=== PATIENT | female | born 1965 | race Caucasian/White ===

== ENCOUNTER 2016-11-07 14:04 | Outpatient (CLI) ==
[2016-05-21 15:35] VITALS: BMI 40.1
[2016-11-07 14:30] LABS: BASOPHILS # (AUTO) 0.1 K/uL (0-0.2); BASOPHILS % (AUTO) 0.9 % (0.0-3.0); EOSINOPHILS # (AUTO) 0.4 K/ul (0.0-0.7); EOSINOPHILS % (AUTO) 4.1 % (0.0-7.0); HEMATOCRIT 40.9 % (37.0-47.0); HEMOGLOBIN 14.8 g/dl (12.0-16.0); IMMATURE GRANULOCYTE % (AUTO) 0.8 % (0.0-5.0); LYMPHOCYTES # (AUTO) 4.3 K/uL (0.60-3.4); LYMPHOCYTES % (AUTO) 40.3 (10.0-50.0); MEAN CORPUSCULAR HGB CONC 36.2 (31.8-35.4); MEAN CORPUSCULAR VOLUME 88.3 fl (81.0-99.0); MONOCYTES # (AUTO) 0.8 K/uL (0.4-2.0); MONOCYTES % (AUTO) 7.5 (0-10); NEUTROPHILS # (AUTO) 4.9 K/ul (2.0-6.9); NEUTROPHILS % (AUTO) 46.4; PLATELET COUNT 289 10^3/uL (140-440); RED BLOOD COUNT 4.63 10^6/ul (4.20-5.40); WHITE BLOOD COUNT 10.56 K/ul (4.6-10.2)
[2016-11-07 16:22] LABS: ALBUMIN 3.9 g/dL (3.4-5.0); ALBUMIN/GLOBULIN RATIO 1.15; ANION GAP 14.5; BILIRUBIN,TOTAL 0.43 mg/dL (0.00-1.20); BUN/CREATININE RATIO 16.09; CALCIUM 9.6 mg/dL (8.2-10.2); CHOL/HDL RATIO 4.3 (4.5-5.5); CREATININE 0.87 mg/dL (0.60-1.30); POTASSIUM 3.5 mmol/L (3.5-5.10); TOTAL PROTEIN 7.3 g/dL (6.4-8.2)
== END 2016-11-07 14:05 | disposition home or self-care (01) ==
LOC: LAB 14:04
PROVIDERS: ATTEND Emergency Medicine
DX: E11.9 Type 2 diabetes mellitus without complications (principal); I10 Essential (primary) hypertension; E78.5 Hyperlipidemia, unspecified; E66.9 Obesity, unspecified; F32.9 Major depressive disorder, single episode, unspecified
CPT/HCPCS: 36415; 80053; 80061; 82306; 82607; 83036; 84443; 85025

== ENCOUNTER 2016-11-16 13:53 | Outpatient (CLI) ==
[2016-05-21 15:35] VITALS: BMI 40.1
--- NOTE | 2016-11-16 14:22 | DI ---
Examination: Three radiographic images of the left foot. Comparison: Right foot radiographs performed 03/09/2016. Reason for study: Left foot injury. FINDINGS: There is subluxation of the first left metatarsal phalangeal joint with sclerotic change suggesting hallus valgus deformity. No acute fracture or dislocation. Degenerative changes are see n in the calcaneus with entheseophyte formation. Impression: 1. Subluxation of the first metatarsal phalangeal joint consistent with hallus valgus deformity. 2. Mild degenerative change.
== END 2016-11-16 13:54 | disposition home or self-care (01) ==
LOC: RAD 13:53
PROVIDERS: ATTEND Emergency Medicine
DX: S99.922A Unspecified injury of left foot, initial encounter (principal)

== ENCOUNTER 2017-04-25 15:49 | Outpatient (CLI) ==
[2016-05-21 15:35] VITALS: BMI 40.1
== END 2017-04-25 15:50 | disposition home or self-care (01) ==
LOC: CAR 15:49
PROVIDERS: ATTEND Internal Medicine
DX: R06.83 Snoring (principal); G47.10 Hypersomnia, unspecified
CPT/HCPCS: 95810

== ENCOUNTER 2017-08-26 16:36 | Emergency (ER) ==
[2017-08-26 16:40] VITALS: BP 130/89; TEMP 98.3; BMI 39.7
[2017-08-26] MEDS ORDERED: MORPHINE 10 MG/ML SYRINGE IM STA (17:03)
[2017-08-26] MEDS ORDERED: LIDOCAINE HCL 1% SDV SUBCUT STA (17:03)
[2017-08-26] MEDS ORDERED: ROCEPHIN IM STA (17:03)
--- NOTE | 2017-08-26 17:05 | ED.PDOC ---
General ED Provider: Dr. KALIE TATE Chief Complaint: Tooth Problem Stated Complaint: Patient is a 52 year old who comes to the ER with right jaw swelling and pain for the last few days. States she has an abscess tooth on the right lower molar. Also complains of chest conjestion and sinus pain. Time Seen by Physician: 16:50 Mode of Arrival: Walk-In Information Source: Patient Exam Limitations: No limitations Primary Care Provider: FAVIAN GASTON Nursing and Triage Documentation Reviewed and Agree: Yes Reviewed sepsis parameters & appropriate labs ordered?: Yes System Inflammatory Response Syndrome: Not Applicable Sepsis Protocol: For patient's 13 years and over: Temp is 96.8 and below OR 101 and greater Pulse >90 BPM Resp >20/minute Acutely Altered Mental Status Are patient's symptoms suggestive of a new infection, such as: -Pneumonia -Skin, Soft Tissue -Endocarditis -UTI -Bone, Joint Infection -Implantable Device -Acute Abdominal Infection -Wound Infection -Meningitis -Blood Stream Catheter Infection -Unknown System Inflammatory Response Syndrome: Not Applicable EENT Complaint Exam - Dental/Oral Complaint/Exam Mechanism of Injury: No known trauma Onset/Duration: 2 days Symptoms Are: Still present Timing: Constant Initial Severity: Moderate Location: RIght lower molar Character: Reports: Aching, Throbbing Aggravating: Reports: Chewing Associated Signs and Symptoms: Reports: Swelling, Foul odor, Foul taste in mouth. Denies: Discharge, Fever Tooth Findings: Present: Gross decay, Gross caries, Abcess, Cellulitis Cervical Lymphadenopathy Present: No Facial Swelling Present: Yes (on the right) Bleeding Present: No Oropharynx Findings: Absent: Clots, Active bleeding Septal Hematoma: No Foreign Body Present: No Dysphagia Present: No Drooling Present: No Asymmetrical Tonsillar Swelling Present: No Uvula Midline: No Jessica-tonsillar Fluctuence: No Trismus Present: No Palatal Petechiae Present: No Scarlatinaform Rash Present: No Lesions: Absent: Lip, Gums, Tongue, Buccal Mucosa, Pharynx Exanthem: Absent: Lip, Gums, Tongue, Buccal Mucosa, Pharynx Vesicles: Absent: Lip, Gums, Tongue, Buccal Mucosa, Pharynx Teeth Picture: 1 - Gross decay with abscess and swelling. Differential Diagnoses: Dental Abcess, Dental Caries, Sinusitis Review of Systems - Review Of Systems Constitutional: Reports: No symptoms Eyes: Reports: No symptoms Ears, Nose, Mouth, Throat: Reports: Mouth pain (and swelling ) Respiratory: Reports: Cough Cardiac: Reports: No symptoms GI: Reports: No symptoms Musculoskeletal: Reports: No symptoms Skin: Reports: No symptoms Neurological: Reports: Anxiety All Other Systems: Reviewed and Negative Past Medical History - Past Medical History Previously Healthy: No Endocrine: Reports: DM 2, Hypothyroid, Dyslipidemia, Other (gout) Cardiovascular: Reports: Hypertension Respiratory: Reports: COPD, Asthma Hematological: Reports: Unknown Gastrointestinal: Reports: GERD Genitourinary: Reports: Kidney stones Neuro/Psych: Reports: Anxiety Musculoskeletal: Reports: Arthritis, Back Pain Cancer: Reports: Unknown Last Menstrual Period: no longer has them - Surgical History General Surgical History: Reports: Tubal ligation, Appendectomy, Cholecystectomy , Orthopedic (lrft knee meniscus repair ) - Family History Family History: Reports: Unknown - Social History Smoking Status: Current every day smoker, Heavy tobacco smoker Hx Substance Use: No Alcohol Screening: None Physical Exam - Physical Exam Appearance: Ill-appearing, Obese Ill-appearing: Moderate Pain Distress: Severe Eyes: KELLY, EOMI, Conjunctiva clear ENT: Ears normal, Nose normal, Oropharynx normal Neck: Supple Respiratory: Airway patent, Breath sounds clear, Breath sounds equal, Respirations nonlabored Cardiovascular: RRR, Pulses normal, No rub, No murmur Musculoskeletal: Normal strength, ROM intact, No edema, No calf tenderness Skin: Warm, Dry, Normal color Neurological: Sensation intact, Motor intact, Alert, Oriented Psychiatric: Anxious Critical Care Note - Critical Care Note Total Time (mins): 0 Course - Course Orders, Labs, Meds: Orders Category Date Time Status UA [URINALYSIS C & S IF INDICATED] Stat LAB 08/26/17 16:54 Uncollected Vital Signs: Temp Pulse Resp BP Pulse Ox 08/26/17 16:36 98.3 F 84 20 130/89 95 Departure - Departure Time of Disposition: 17:54 Disposition: HOME SELF-CARE Discharge Problem: Dental abscess, Dental caries Instructions: Dental Abscess (ED) Condition: Stable Pt referred to PMD for follow-up: Yes Additional Instructions: Follow up with your dentist in 2-5 days Take antibiotics as prescribed. Quit smoking Prescriptions: Amoxicillin/Potassium Clav [Augmentin 500-125 mg Tab] 1 tab PO Q8HR #30 tablet Ibuprofen [Motrin] 600 mg PO Q6H PRN #20 tablet PRN Reason: Analgesia Allergies/Adverse Reactions: Allergies codeine Adverse Reaction (Verified 08/26/17 16:40) sulfamethoxazole [From Bactrim] Adverse Reaction (Verified 08/26/17 16:40) trimethoprim [From Bactrim] Adverse Reaction (Verified 08/26/17 16:40) Home Medications: Ambulatory Orders Albuterol Sulfate [Proair Hfa] 2 puff IH Q4H PRN 05/21/16 Amlodipine Besylate [Norvasc] 5 mg PO DAILY 05/21/16 Atorvastatin Calcium [Lipitor] 40 mg PO DAILY 05/21/16 Budesonide/Formoterol Fumarate [Symbicort 160-4.5 Mcg Inhaler] 1 puff IH BID 10/05 Captopril 50 mg PO BID 05/21/16 Citalopram Hydrobromide [Citalopram HBr] 40 mg PO DAILY 05/21/16 Furosemide [Lasix] 20 mg PO BID 05/21/16 Glyburide 5 mg PO BID 05/21/16 Hydrochlorothiazide 12.5 mg PO DAILY 05/21/16 Levothyroxine Sodium [Synthroid] 25 mcg PO QDAC 05/21/16 Metformin HCl [Glucophage] 1,000 mg PO BID 05/21/16 Potassium Chloride [Micro-K Cap] 10 meq PO BID 05/21/16 Ranitidine HCl 150 mg PO BID 05/21/16 Topiramate [Topamax] 25 mg PO BID 05/21/16 Gabapentin 600 mg PO BEDTIME 06/13/17 Hydrocodone Bit/Acetaminophen [[place] 7.5-325] 1 each PO TID 06/13/17 Amoxicillin/Potassium Clav [Augmentin 500-125 mg Tab] 1 tab PO Q8HR #30 tablet 08/26/17 Ibuprofen [Motrin] 600 mg PO Q6H PRN #20 tablet 08/26/17 Disposition Discussed With: Patient
== END 2017-08-26 17:59 | disposition home or self-care (01) ==
LOC: ED 16:36
DX: K04.7 Periapical abscess without sinus (principal); K02.7 Dental root caries; F17.210 Nicotine dependence, cigarettes, uncomplicated; Z79.899 Other long term (current) drug therapy
CPT/HCPCS: 81001; 87086; 96372; 99283

== ENCOUNTER 2017-11-07 15:49 | Outpatient (CLI) | END 2017-11-07 15:50 | disposition home or self-care (01) | LOC: LAB 15:49 | PROVIDERS: ATTEND Internal Medicine | DX: E11.9 Type 2 diabetes mellitus without complications (principal); E78.5 Hyperlipidemia, unspecified; I10 Essential (primary) hypertension; E66.9 Obesity, unspecified; J44.9 Chronic obstructive pulmonary disease, unspecified; E03.9 Hypothyroidism, unspecified | CPT/HCPCS: 36415; 80053; 80061; 81001; 83036; 84443; 85025; 87086 ==

== ENCOUNTER 2018-04-05 15:48 | Outpatient (CLI) | END 2018-04-05 15:49 | disposition home or self-care (01) | LOC: LAB 15:48 | PROVIDERS: ATTEND Internal Medicine | DX: E11.9 Type 2 diabetes mellitus without complications (principal); E78.5 Hyperlipidemia, unspecified; N39.0 Urinary tract infection, site not specified | CPT/HCPCS: 36415; 80053; 80061; 81001; 83036; 84439; 84443; 85025; 87086 ==

== ENCOUNTER 2018-04-12 15:33 | Outpatient (CLI) | END 2018-04-12 15:34 | disposition home or self-care (01) | LOC: LAB 15:33 | PROVIDERS: ATTEND Internal Medicine | DX: N39.0 Urinary tract infection, site not specified (principal) | CPT/HCPCS: 81001; 87086 ==

== ENCOUNTER 2018-05-16 07:58 | Outpatient (CLI) ==
--- NOTE | 2018-05-16 10:04 | CT ---
EXAM: CT of the abdomen and pelvis with and without contrast (CT urogram) History: Microscopic hematuria, urinary frequency, lower abdominal pain and pelvic pain. Comparison: CT abdomen pelvis 05/21/2016 Technique: Multiplanar CT images through the abdomen and pelvis were obtained with and without the a dministration of IV contrast. MIP images and 3-D reconstructions also provided Findings: Lung bases are clear. No acute osseous abnormalities. Status post cholecystectomy. The l iver is enlarged measuring 21 cm in length. Spleen is enlarged measuring 14 cm in length. The 1 mm left renal calculi. No right renal calculi. Ureteral calculi. No focal liver or splenic lesions. Pancreas is unremarkable. Adrenal glands are within normal limits. No renal masses. No dilated loo ps of bowel. Scattered colonic stool. No free air and no ascites. There is irregular wall thickeni ng of the bladder from 2 o'clock to 11 o'clock.. Adnexal structures appear appropriate for patient's age. No pathologically enlarged lymph nodes. The delayed images suggest possible bilateral papillar y necrosis. Impression: 1. Irregular bladder wall thickening could be malignant. Recommend direct visualization. 2. Punctate nonobstructing left nephrolithiasis. 3. Hepatosplenomegaly. 4. The delayed images suggest possible bilateral papillary necrosis.
== END 2018-05-16 07:59 | disposition home or self-care (01) ==
LOC: RAD 07:58
PROVIDERS: ATTEND Urology
DX: R31.21 Asymptomatic microscopic hematuria (principal); N20.0 Calculus of kidney
CPT/HCPCS: 36415; 82565; 84520

== ENCOUNTER 2018-08-29 09:00 | Observation (INO) ==
[2018-08-29] MEDS ORDERED: SODIUM CHLORIDE 1,000 ML IV STA (09:40)
--- NOTE | 2018-08-29 09:54 | ED.PDOC ---
General ED Provider: Dr. SANTOS SPENCER Chief Complaint: Nausea/Vomiting Stated Complaint: n/v/ diarrhea, abdominal pain x 3 months Time Seen by Physician: 09:00 (seen with crista) Mode of Arrival: Walk-In Information Source: Patient Exam Limitations: No limitations Primary Care Provider: FAVIAN GASTON Nursing and Triage Documentation Reviewed and Agree: Yes Does patient meet sepsis criteria?: No System Inflammatory Response Syndrome: Not Applicable Sepsis Protocol: For patient's 13 years and over: Temp is 96.8 and below OR 101 and greater Pulse >90 BPM Resp >20/minute Acutely Altered Mental Status Are patient's symptoms suggestive of a new infection, such as: -Pneumonia -Skin, Soft Tissue -Endocarditis -UTI -Bone, Joint Infection -Implantable Device -Acute Abdominal Infection -Wound Infection -Meningitis -Blood Stream Catheter Infection -Unknown GI Complaint Exam - Abdominal Pain Complaint/Exam Onset: Gradual Duration: 3 months Symptoms Are: Still present Timing: Intermittent Initial Severity: Mild Current Severity: Mild Location of Pain: Diffuse Radiates To: Denies: Chest, Back, Flank, LLQ, RLQ, Inguinal Character: Reports: Cramping Aggravating: Reports: None Alleviating: Reports: None Associated Signs and Symptoms: Reports: Nausea, Vomiting, Diarrhea (no bloody stools reported , no dark stools). Denies: Diaphoresis, Fever, Cough, Chest pain, Dizziness, Back pain, Constipation, Blood in stool, Dysuria, Urinary frequency, Decreased urine output, Decreased appetite, Vaginal bleeding, Vaginal discharge, Sore throat, Decreased activity Related History: Reports: Similar episode AAA Risk Factors: Reports: Hypertension Cardiac Risk Factors: Reports: DM, Hypertension, Elevated lipids Ectopic Risk Factors: Reports: None Ovarian Torsion Risk Factors: Reports: None Surgical Obstruction Risk Factors: Reports: None Related Surgical History: Reports: None Patient Rh Status: Unknown Abdominal Findings: Present: None Differential Diagnoses: Appendicitis, Bowel Obstruction, Constipation, Diverticulitis, Gastroenteritis, Hepatitis, Pancreatitis, Irritable Bowel Syndrome, Pneumonia, Renal Colic, Ureteral Stone, UTI Quality Indicator For Non-Traumatic Chest Pain/Syncope: EKG Performed Review of Systems - Review Of Systems Constitutional: Reports: Malaise Eyes: Reports: No symptoms Ears, Nose, Mouth, Throat: Reports: No symptoms Respiratory: Reports: No symptoms Cardiac: Reports: No symptoms GI: Reports: Abdominal pain, Diarrhea, Nausea, Vomiting : Reports: No symptoms Musculoskeletal: Reports: No symptoms Skin: Reports: No symptoms Neurological: Reports: No symptoms Endocrine: Reports: No symptoms Hematologic/Lymphatic: Reports: No symptoms All Other Systems: Reviewed and Negative Past Medical History - Past Medical History Previously Healthy: No Endocrine: Reports: DM 2, Hypothyroid, Dyslipidemia, Other (gout) Cardiovascular: Reports: Hypertension Respiratory: Reports: COPD, Asthma Hematological: Reports: Unknown Gastrointestinal: Reports: GERD Genitourinary: Reports: Kidney stones Neuro/Psych: Reports: Anxiety Musculoskeletal: Reports: Arthritis, Back Pain Cancer: Reports: Unknown Last Menstrual Period: 5 years ago - Surgical History General Surgical History: Reports: Tubal ligation, Appendectomy, Cholecystectomy , Orthopedic (lrft knee meniscus repair ) - Family History Family History: Reports: Unknown - Social History Smoking Status: Current every day smoker Hx Substance Use: No Alcohol Screening: None - Immunizations Tetanus Shot up to Date: Yes Physical Exam - Physical Exam Appearance: Well-appearing, No pain distress, Well-nourished Eyes: KELLY, EOMI, Conjunctiva clear ENT: Ears normal, Nose normal, Oropharynx normal Respiratory: Airway patent, Breath sounds clear, Breath sounds equal, Respirations nonlabored Cardiovascular: RRR, Pulses normal, No rub, No murmur GI/: Soft, Nontender, No masses, Bowel sounds normal, No Organomegaly Musculoskeletal: Normal strength, ROM intact, No edema, No calf tenderness Skin: Warm, Dry, Normal color Neurological: Sensation intact, Motor intact, Reflexes intact, Cranial nerves intact, Alert, Oriented Psychiatric: Affect appropriate, Mood appropriate Critical Care Note - Critical Care Note Total Time (mins): 0 Course - Course Hematology/Chemistry: 08/29/18 09:54 08/29/18 09:54 Orders, Labs, Meds: Lab Review 08/29/18 08/29/18 08/29/18 09:44 09:54 09:54 WBC 15.56 H RBC 4.87 Hgb 14.5 Hct 40.8 MCV 83.8 MCH 29.8 MCHC 35.5 H RDW Coeff of Sarita 13.7 Plt Count 250 Immature Gran % (Auto) 0.5 Neut % (Auto) 78.5 Lymph % (Auto) 10.3 Mcnairy % (Auto) 10.2 H Eos % (Auto) 0.1 Baso % (Auto) 0.4 Immature Gran # (Auto) 0.1 Neut # (Auto) 12.2 H Lymph # (Auto) 1.6 Mcnairy # (Auto) 1.6 Eos # (Auto) 0.0 Baso # (Auto) 0.1 Sodium 131.5 L Potassium 3.27 L Chloride 99.2 Carbon Dioxide 23.1 Anion Gap 12.47 BUN 15.5 Creatinine 1.03 Estimated GFR (MDRD) 56.00 BUN/Creatinine Ratio 15.04 Glucose 222.1 H Lactic Acid Calcium 9.27 Total Bilirubin 1.27 AST 13.6 L ALT 17.1 Alkaline Phosphatase 104.8 Total Protein 7.99 Albumin 4.33 Globulin 3.66 Albumin/Globulin Ratio 1.18 Amylase 40.3 Lipase 62.8 Procalcitonin Influ A Molecular Assay Negative by naat Influ B Molecular Assay Negative by naat 08/29/18 08/29/18 09:54 09:54 WBC RBC Hgb Hct MCV MCH MCHC RDW Coeff of Sarita Plt Count Immature Gran % (Auto) Neut % (Auto) Lymph % (Auto) Mcnairy % (Auto) Eos % (Auto) Baso % (Auto) Immature Gran # (Auto) Neut # (Auto) Lymph # (Auto) Mcnairy # (Auto) Eos # (Auto) Baso # (Auto) Sodium Potassium Chloride Carbon Dioxide Anion Gap BUN Creatinine Estimated GFR (MDRD) BUN/Creatinine Ratio Glucose Lactic Acid 1.11 Calcium Total Bilirubin AST ALT Alkaline Phosphatase Total Protein Albumin Globulin Albumin/Globulin Ratio Amylase Lipase Procalcitonin 0.33 Influ A Molecular Assay Influ B Molecular Assay Orders Category Date Time Status EKG-(ED ONLY) Stat CARDIO 08/29/18 09:54 Ordered EKG-(IP & OP ONLY) DAILY CARDIO 08/30/18 06:00 Ordered EKG-(IP & OP ONLY) DAILY CARDIO 08/31/18 06:00 Ordered EKG-(IP & OP ONLY) DAILY CARDIO 09/01/18 06:00 Ordered BLOOD GLUCOSE MONITORING ACCUCHECK Q6H CARE 08/29/18 11:16 Ordered C-DIFF MONITORING (NURSING) BID CARE 08/29/18 11:18 Ordered GIVE HS SNACK 2100 CARE 08/29/18 11:17 Ordered VITAL SIGNS Q8HR CARE 08/29/18 11:16 Ordered ADA 1800 SRINIVASAN. DIET DIETARY 08/29/18 Lunch Ordered HS SNACK DIETARY 08/29/18 Dinner Ordered AMYLASE Stat LAB 08/29/18 09:54 Completed BLOOD CULTURE (ED ONLY) Stat LAB 08/29/18 09:54 Received CBC W/ AUTO DIFF DAILY@0600 LAB 08/30/18 06:00 Ordered CBC W/ AUTO DIFF DAILY@0600 LAB 08/31/18 06:00 Ordered CBC W/ AUTO DIFF Stat LAB 08/29/18 09:54 Completed COMPREHENSIVE METABOLIC PANEL DAILY@0600 LAB 08/30/18 06:00 Ordered COMPREHENSIVE METABOLIC PANEL DAILY@0600 LAB 08/31/18 06:00 Ordered COMPREHENSIVE METABOLIC PANEL Stat LAB 08/29/18 09:54 Completed FLU A/B MOLECULAR Stat LAB 08/28/18 09:41 Completed LACTIC ACID Stat LAB 08/29/18 09:54 Completed LIPASE Stat LAB 08/29/18 09:54 Completed MOLECULAR GROUP A STREP Stat LAB 08/28/18 09:41 Completed OCCULT BLOOD, STOOL Stat LAB 08/29/18 11:18 Uncollected PROCALCITONIN Stat LAB 08/29/18 09:54 Completed STOOL CULTURE Stat LAB 08/29/18 Uncollected c-diff [C. DIFFICILE] Routine LAB 08/29/18 11:18 Uncollected Albuterol Sulfate [Proair Hfa] MEDS 08/29/18 11:14 Ordered 2 puff IH Q4H PRN Amlodipine Besylate [Norvasc] MEDS 08/30/18 09:00 Ordered 5 mg PO DAILY Atorvastatin Calcium [Lipitor] MEDS 08/30/18 09:00 Ordered 40 mg PO DAILY Aztreonam [Azactam] 1 gm MEDS 08/29/18 11:30 Ordered 0.9 % Sodium Chloride [Sodium Chloride] 50 ml IV Q8HR Budesonide/Formoterol Fumarate [Symbicort 160-4.5 Mcg MEDS 08/29/18 21:00 Ordered Inhaler] 1 puff IH BID Captopril [Captopril] MEDS 08/29/18 21:00 Ordered 50 mg PO BID Ceftriaxone Sodium [Rocephin] 1 gm MEDS 08/29/18 11:30 Ordered 0.9 % Sodium Chloride [Sodium Chloride] 50 ml IV DAILY Citalopram Hydrobromide [Citalopram HBr] MEDS 08/30/18 09:00 Ordered 40 mg PO DAILY Furosemide [Lasix Tab] MEDS 08/29/18 21:00 Ordered 20 mg PO BID Gabapentin [Gabapentin] MEDS 08/29/18 21:00 Ordered 600 mg PO BEDTIME Hydrochlorothiazide [Hydrochlorothiazide] MEDS 08/30/18 09:00 Ordered 12.5 mg PO DAILY Hydrocodone Bit/Acetaminophen [[place] 7.5-325] MEDS 08/29/18 15:00 Ordered 1 each PO TID Insulin Regular, Human [Humulin R] MEDS 08/29/18 11:16 Stat See Protocol SUBCUT ONCE STA Levothyroxine Sodium [Synthroid] MEDS 08/30/18 06:30 Ordered 25 mcg PO QDAC Potassium Chloride [Micro-K Cap] MEDS 08/29/18 21:00 Ordered 10 meq PO BID Promethazine HCl [Phenergan 25 mg/ml Vial] MEDS 08/29/18 11:12 Discontinued 25 mg .ROUTE .STK-MED ONE Promethazine HCl [Phenergan 25 mg/ml Vial] 25 mg MEDS 08/29/18 11:10 Active 0.9 % Sodium Chloride [Sodium Chloride] 50 ml IV ONCE Ranitidine HCl [Ranitidine HCl] MEDS 08/29/18 21:00 Ordered 150 mg PO BID Sodium Chloride 0.9% [Sodium Chloride] 1,000 ml MEDS 08/29/18 09:40 Active IV 125 mls/hr Sodium Chloride 0.9% [Sodium Chloride] 1,000 ml MEDS 08/29/18 11:30 Ordered IV 75 mls/hr Topiramate [Topamax] MEDS 08/29/18 21:00 Ordered [address] ABDOMEN/PELVIS WO CONTRAST Stat RADS 08/29/18 09:[address] CHEST W/O CONTRAST Stat RADS 08/29/18 09:54 Completed Medications Generic Name Dose Route Start Last Admin Trade Name Freq PRN Reason Stop Dose Admin Hydrocodone Bitart/Acetaminophen tab 08/29/18 15:00 [place] 7.5-325 PO TID ELODIA Albuterol Sulfate 2 puff 08/29/18 11:14 Proair Hfa IH Q4H PRN Bronchospasm Amlodipine Besylate 5 mg 08/30/18 09:00 Norvasc PO DAILY ELODIA Budesonide/Formoterol Fumarate 1 puff 08/29/18 21:00 Symbicort 160-4.5 Mcg Inhaler IH BID ELODIA Furosemide 20 mg 08/29/18 21:00 Lasix Tab PO BID ELODIA Sodium Chloride 1,000 mls @ 125 mls/hr 08/29/18 09:40 08/29/18 09:50 Sodium Chloride IV 08/29/18 17:39 125 mls/hr .Q8H STA Administration Promethazine HCl 25 mg/ Sodium 51 mls @ 75 mls/hr 08/29/18 11:10 Chloride IV 08/29/18 11:50 ONCE STA Ceftriaxone Sodium 1 gm/ 50 mls @ 75 mls/hr 08/29/18 11:30 Sodium Chloride IV DAILY ELODIA Sodium Chloride 1,000 mls @ 75 mls/hr 08/29/18 11:30 Sodium Chloride IV .[id number] ELODIA Aztreonam 1 gm/ Sodium 50 mls @ 75 mls/hr 08/29/18 11:30 Chloride IV Q8HR ELODIA Levothyroxine Sodium 25 mcg 08/30/18 06:30 Synthroid PO QDAC ELODIA Non-Formulary Medication 40 mg 08/30/18 09:00 Atorvastatin Calcium [Lipitor] PO DAILY ELODIA Non-Formulary Medication 50 mg 08/29/18 21:00 Captopril [Captopril] PO BID ELODIA Non-Formulary Medication 40 mg 08/30/18 09:00 Citalopram Hydrobromide [Citalopram Hbr] PO DAILY ELODIA Non-Formulary Medication 600 mg 08/29/18 21:00 Gabapentin [Gabapentin] PO BEDTIME ELODIA Non-Formulary Medication 12.5 mg 08/30/18 09:00 Hydrochlorothiazide [Hydrochlorothiazide] PO DAILY ELODIA Non-Formulary Medication 150 mg 08/29/18 21:00 Ranitidine Hcl [Ranitidine Hcl] PO BID ELODIA Non-Formulary Medication 25 mg 08/29/18 21:00 Topiramate [Topamax] PO BID ELODAI Potassium Chloride 10 meq 08/29/18 21:00 Micro-K Cap PO BID LEODIA Discontinued Medications Generic Name Dose Route Start Last Admin Trade Name Freq PRN Reason Stop Dose Admin Insulin Human Regular 0 unit 08/29/18 11:16 Humulin R SUBCUT 08/29/18 11:17 ONCE STA Protocol Vital Signs: Temp Pulse Resp BP Pulse Ox 08/29/18 09:00 100.0 F H 100 H 18 156/85 H 97 Departure - Departure Time of Disposition: 11:19 Disposition: ADMITTED INPATIENT Discharge Problem: Nausea, Vomiting, Pyelonephritis Instructions: Urinary Tract Infection in Women (ED) Condition: Good Pt referred to PMD for follow-up: Yes IPMP verified?: No Allergies/Adverse Reactions: Allergies codeine Adverse Reaction (Verified 08/26/17 16:40) sulfamethoxazole [From Bactrim] Adverse Reaction (Verified 08/26/17 16:40) trimethoprim [From Bactrim] Adverse Reaction (Verified 08/26/17 16:40) Home Medications: Ambulatory Orders Albuterol Sulfate [Proair Hfa] 2 puff IH Q4H PRN 05/21/16 Amlodipine Besylate [Norvasc] 5 mg PO DAILY 05/21/16 Atorvastatin Calcium [Lipitor] 40 mg PO DAILY 05/21/16 Budesonide/Formoterol Fumarate [Symbicort 160-4.5 Mcg Inhaler] 1 puff IH BID 10/05 Captopril 50 mg PO BID 05/21/16 Citalopram Hydrobromide [Citalopram HBr] 40 mg PO DAILY 05/21/16 Furosemide [Lasix] 20 mg PO BID 05/21/16 Glyburide 5 mg PO BID 05/21/16 Hydrochlorothiazide 12.5 mg PO DAILY 05/21/16 Levothyroxine Sodium [Synthroid] 25 mcg PO QDAC 05/21/16 Metformin HCl [Glucophage] 1,000 mg PO BID 05/21/16 Potassium Chloride [Micro-K Cap] 10 meq PO BID 05/21/16 Ranitidine HCl 150 mg PO BID 05/21/16 Topiramate [Topamax] 25 mg PO BID 05/21/16 Gabapentin 600 mg PO BEDTIME 06/13/17 Hydrocodone Bit/Acetaminophen [[place] 7.5-325] 1 each PO TID 06/13/17 Ibuprofen [Motrin] 600 mg PO Q6H PRN #20 tablet 08/26/17 Disposition Discussed With: Patient
--- NOTE | 2018-08-29 10:39 | CT ---
EXAM: CT of the abdomen pelvis without contrast History: Abdominal pain. Comparison: CT abdomen pelvis 05/16/2018 Findings: Lung bases are clear. No acute osseous abnormalities. Status post cholecystectomy. The liver and spleen are enlarged. No peripancreatic inflammation. Ad renal glands are unremarkable. There is right perinephric inflammation. Punctate left renal calculi . No ureteral stones. The bladder is not well distended but there is irregular bladder wall thicken ing similar to the prior study. No bowel obstruction. Adnexal structures appear appropriate for pat ient's age. Colonic diverticulosis. No free air. Impression: 1. Right perinephric inflammation is suspicious for pyelonephritis. A recently passed stone could g kiana a similar appearance. 2. Nonobstructing left nephrolithiasis. 3. No significant interval change in the irregular bladder wall thickening. Correlate for cystitis. Malignancy is not excluded. 4. Mild hepatosplenomegaly. 5. Colonic diverticulosis
--- NOTE | 2018-08-29 10:43 | CT ---
EXAM: CT of the chest without contrast History: Cough. Comparison: CT abdomen pelvis 08/29/2018, chest radiograph 08/24/2015 Technique: Multiplanar CT images through the chest were obtained without the administration of IV co ntrast Findings: Heart size is normal. No pericardial effusion. Coronary artery calcifications. Great ve ssels are unremarkable. No pathologically enlarged thoracic lymph nodes. No consolidation. No pleu ral fluid and no pneumothorax. No suspicious lung masses or lung nodules. For details in the upper abdomen, please see dedicated CT abdomen pelvis done on the same day. No ac [facility] osseous abnormalities. Prominent posterior disc osteophyte complex at T5-T6 causing at least mod erate central canal stenosis. Impression: 1. No acute intrathoracic process. 2. Coronary artery disease. 3. Prominent posterior disc osteophyte complex at T5-6 causing at least moderate central canal steno sis. Consider follow-up with MRI of the thoracic spine.
[2018-08-29] MEDS ORDERED: PHENERGAN 25 MG/ML VIAL 25 MG in SODIUM CHLORIDE 50 ML IV STA (11:10)
[2018-08-29] MEDS ORDERED: PHENERGAN 25 MG/ML VIAL ONE (11:12)
[2018-08-29] MEDS ORDERED: PROAIR HFA IH PRN (11:14)
[2018-08-29] MEDS ORDERED: HUMULIN R SUBCUT STA (11:16)
[2018-08-29 12:43] VITALS: BMI 38.8
[2018-08-29] MEDS: SODIUM CHLORIDE 1,000 ML IV SCH (12:49)
[2018-08-29] MEDS: AZACTAM 1 GM in SODIUM CHLORIDE 50 ML IV SCH ×3 (13:18→21:47)
[2018-08-29] MEDS ORDERED: TORADOL ONE (13:22)
[2018-08-29] MEDS: ROCEPHIN 1 GM in SODIUM CHLORIDE 50 ML IV SCH (13:28)
[2018-08-29] MEDS: TORADOL IVP SCH ×3 (13:32→21:58)
[2018-08-29] MEDS: NORCO 7.5-325 PO SCH ×2 (15:06→21:50)
[2018-08-29] MEDS: LASIX TAB PO SCH (16:59)
[2018-08-29] MEDS: MICRO-K CAP PO SCH (16:59)
[2018-08-29] MEDS: ZANTAC PO SCH (16:59)
[2018-08-29] MEDS: HUMULIN R SUBCUT PRN ×2 (17:00→21:48)
[2018-08-29] MEDS ORDERED: NON-FORMULARY MEDICATION (Gabapentin [Gabapentin] 600 MG) PO SCH (21:00)
[2018-08-29] MEDS ORDERED: NON-FORMULARY MEDICATION (Ranitidine Hcl [Ranitidine Hcl] 150 MG) PO SCH (21:00)
[2018-08-29] MEDS ORDERED: NON-FORMULARY MEDICATION (Topiramate [Topamax] 25 MG) PO SCH (21:00)
[2018-08-29] MEDS ORDERED: CAPTOPRIL 50 MG PO SCH (21:00)
[2018-08-29] MEDS: SYMBICORT 160-4.5 MCG INHALER IH SCH (21:47)
[2018-08-29] MEDS: CAPOTEN PO SCH (21:49)
[2018-08-29] MEDS: NEURONTIN PO SCH (21:49)
[2018-08-29] MEDS: TOPAMAX PO SCH (21:49)
[2018-08-30] MEDS: SODIUM CHLORIDE 1,000 ML IV SCH ×2 (04:58→20:51)
[2018-08-30] MEDS: TORADOL IVP SCH ×3 (05:26→20:52)
[2018-08-30] MEDS: SYNTHROID PO SCH (06:08)
[2018-08-30] MEDS: AZACTAM 1 GM in SODIUM CHLORIDE 50 ML IV SCH ×3 (06:08→20:50)
[2018-08-30] MEDS: HUMULIN R SUBCUT PRN ×4 (06:09→20:56)
[2018-08-30] MEDS: ZANTAC PO SCH ×2 (06:09→16:45)
[2018-08-30] MEDS: LASIX TAB PO SCH ×2 (06:09→16:45)
[2018-08-30] MEDS ORDERED: ZOFRAN 4 MG/2 ML IVP PRN (08:01)
[2018-08-30] MEDS ORDERED: TYLENOL PO PRN (08:01)
--- NOTE | 2018-08-30 08:30 | HP ---
DATE OF SERVICE: 08/29/18 REASON FOR HOSPITALIZATION/HISTORY OF PRESENT ILLNESS: 53 year old white female who presented to the emergency room with low grade fever, abdominal pain and nausea. PAST MEDICAL HISTORY: Chronic diarrhea Diabetes type 2 uncontrol Neuropathy Obesity History of recurrent UTI's Dyslipidemia Hypertension Coronary artery disease Chronic back pain PAST SURGICAL HISTORY: Appendectomy Cholecystectomy Tubal ligation REVIEW OF SYSTEMS: CONSTITUTIONAL: No night sweats. No fatigue, malaise, lethargy. Fever. HEENT: Eyes: No visual changes. No eye pain. No eye discharge. ENT: No runny nose. No epistaxis. No sinus pain. No sore throat. No odynophagia. No ear pain. No congestion. RESPIRATORY: No cough, no congestion. No hemoptysis. No shortness of breath. CARDIOVASCULAR: No angina symptoms. No CHF symptoms. No atypical chest pain for CAD. No palpitations. No PND. No orthopnea. GASTROINTESTINAL: Abdominal pain. Nausea. Diarrhea. No hematemesis. No hematochezia. GENITOURINARY: No urgency. No frequency. No dysuria. No hematuria. No obstructive symptoms. No discharge. No pain. No significant abnormal bleeding. MUSCULOSKELETAL: No musculoskeletal pain. No joint swelling. No arthritis. NEUROLOGICAL: No headache. No neck pain. No syncope. No seizures. No dizziness. PSYCHIATRIC: Not anxious. No depression. No suicidal thoughts. No homicidal thoughts. SKIN: No rash. No lesions. No wounds. ENDOCRINE: No unexplained weight loss. No weight gain. HEMATOLOGIC/LYMPHATIC: No anemia. No purpura. No petechiae. No prolonged or excessive bleeding. No palpable lymph nodes. PERSONAL/FAMILY/SOCIAL HISTORY: The patient is not . Nonsmoker, no alcohol or illicit drug use MEDICATIONS: Topamax 25mg Po twice a day Lasix 20mg PO twice a day Citalopram 40mg PO daily Synthroid 25mcg PO QDAC Captopril 50mg PO twice a day Norvasc 5mg PO daily Ranitidine 150mg PO twice a day Glucophage 1,000mg PO twice a day Micro K cap 10meq PO twice a day ProAir 2 puff IH Q 4 hours PRN Symbicort 160-4.5mcg one puff IH twice a day Lipitor 40mg Po daily Hydrochlorothiazide 12.5mg PO daily [place] 7.5-325mg PO three times a day Gabapentin 900mg PO bedtime Motrin 600mg PO Q 6 hours PRN ALLERGIES: Codeine Sulfamethoxazole Trimethoprim PHYSICAL EXAMINATION: VITAL SIGNS: Temperature 100, pulse 100, blood pressure 156/85, respiratory rate 18, pulse ox 97% HEENT: Head normocephalic, atraumatic. Eyes: Extraocular muscles are intact. Pupils are equal, round and reactive to light and accommodation. Ears: No lesions. Nose appeared normal. Throat: No exudate or erythema. NECK: Supple. No JVD, no carotid bruit. No lymphadenopathy or thyromegaly. LUNGS: Diminished breath sounds. Clear to auscultation. Percussion note normal. Chest symmetrical. HEART: S1, S2, no S3. No murmurs. No cyanosis or clubbing. No ascites. Pulses: Dorsalis pedis and posterior tibial pulses +1 to +2 bilaterally. ABDOMEN: Soft. Nontender. Bowel sounds active. Right CVA tenderness. No mass felt. Right Suprapubic tenderness, mild EXTREMITIES: Trace edema. Full range of motion of all extremities, equal. NEUROLOGIC: No focal deficit. Cranial nerves II through XII are grossly intact. No headache, no double vision or headache. SKIN: Not dry. Intact. Turgor - normal. LYMPHATIC: No palpable lymph nodes/no lymphedema. MUSCULOSKELETAL: Normal joints with no swelling. Muscle tone is normal. LABS: CT of the abdomen shows right paranephric inflammation suspicious for right pyelonephritis. Bladder wall thickening consistent with cystitis. CT of the chest shows no acute process. Coronary artery disease. Sodium 131, potassium 3.2 , BUN 15, creatinine 1.03, glucose 222, AST 13, ALT 17, AMylase 40, lipase 62. Rapid flu A and B not negative. Strep negative. WBC 15.5, hgb 14.5, hct 40.8, plt count 250 ASSESSMENT: 1. Acute right pyelonephritis 2. Urinary tract infection 3. Diarrhea, nonspecific times four to five days, likely due to uncontrolled diabetes mellitus type 2 4. Diabetes Mellitus type 2 5. Hypertension PLAN: 1. Will admit 2. Routine telemetry orders 3. CBC/CMP daily 4. Rocephin 1 gram IV daily 5. Azactam IV 6. Normal Saline at 75cc an hour IV 7. Stool for C-Diff 8. Stool for culture and sensitive 9. Urine sent out for culture and sensitivity 10.Low sodium diabetic diet Will follow closely. TIME SPENT: More than 70 minutes. MTDD
[2018-08-30] MEDS ORDERED: NON-FORMULARY MEDICATION (Hydrochlorothiazide [Hydrochlorothiazide] 12.5 MG) PO SCH (09:00)
[2018-08-30] MEDS ORDERED: NON-FORMULARY MEDICATION (Atorvastatin Calcium [Lipitor] 40 MG) PO SCH (09:00)
[2018-08-30] MEDS ORDERED: NON-FORMULARY MEDICATION (Citalopram Hydrobromide [Citalopram Hbr] 40 MG) PO SCH (09:00)
--- NOTE | 2018-08-30 09:19 | PCM.PROG ---
Attending Provider: ATTENDING PROVIDER: Dr. FAVIAN GASTON This patient is seen with Courtney Cao, Nurse Practitioner. DATE OF SERVICE: 08/30/18 SUBJECTIVE: This 53 year old WHITE/ F was hospitalized 08/29/18. The patient is sitting in bed resting comfortably. She continued to have fever through the night with some nausea. She still has right flank pain but improved. REVIEW OF SYSTEMS: CONSTITUTIONAL: Fever. No night sweats. No fatigue, malaise, lethargy. No chills. HEENT: Eyes: No visual changes. No eye pain. No eye discharge. ENT: No runny nose. No epistaxis. No sinus pain. No odynophagia. No congestion. RESPIRATORY: No cough, no congestion. No hemoptysis. No shortness of breath. CARDIOVASCULAR: No angina symptoms. No CHF symptoms. No atypical chest pain for CAD. No palpitations. No orthopnea.. GASTROINTESTINAL: Positive for right flank pain. No abdominal pain. No nausea or vomiting. No diarrhea or constipation. No hematemesis. No hematochezia. GENITOURINARY: Dysuria. No urgency. No frequency. No hematuria. No obstructive symptoms. No discharge. No pain. No significant abnormal bleeding. MUSCULOSKELETAL: No musculoskeletal pain; no joint swelling. NEUROLOGICAL: Awake, alert, oriented to time, place and person. No headache. No neck pain. No syncope. No seizures. No dizziness. PSYCHIATRIC: Not anxious. No depression. No suicidal thoughts. No homicidal thoughts. SKIN: No rash. No lesions. No wounds. ENDOCRINE: No unexplained weight loss. No weight gain. HEMATOLOGIC/LYMPHATIC: No anemia. No purpura. No petechiae. No prolonged or excessive bleeding. No palpable lymph nodes. PHYSICAL EXAMINATION: GENERAL: The patient is awake, alert and oriented, sitting in bed in no distress. VITAL SIGNS: Temperature 100.9 F, Pulse 93, Respiratory Rate 16, BP 125/76, Pulse Ox 92% HEENT: Head normocephalic, atraumatic. Eyes: Extraocular muscles are intact. Pupils are equal, round and reactive to light and accommodation. Ears: No lesions. Nose appeared normal. Throat: No exudate or erythema. NECK: Supple. No JVD, no carotid bruit. No lymphadenopathy or thyromegaly. LUNGS: Diminished breath sounds. Clear to auscultation. Percussion note normal. Chest symmetrical. HEART: S1, S2, no S3. No murmurs. No cyanosis or clubbing. No ascites. Pulses: Dorsalis pedis and posterior tibial pulses +1 to +2 both sides. ABDOMEN: Soft. Right CVA tenderness, mild. Bowel sounds active. No CVA tenderness. No mass felt. EXTREMITIES: No edema. Full range of motion of all extremities, equal. NEUROLOGIC: No focal deficit. Cranial nerves II through XII are grossly intact. No headache, no double vision or headache. SKIN: Not dry. Intact. Turgor-normal. LYMPHATIC: No palpable lymph nodes/no lymphedema. MUSCULOSKELETAL: Normal joints with no swelling. Muscle tone is normal. LAB REVIEW: 08/30/18 06:05 08/30/18 06:05 08/30/18 06:05: Sodium 129.5 L, Potassium 3.25 L, Chloride 100.2, Carbon Dioxide 23.7, Anion Gap 8.85, BUN 23.9 H, Creatinine 1.17, Estimated GFR (MDRD) 49.00, BUN/Creatinine Ratio 20.42, Glucose 219.7 H, Calcium 8.31 L, Total Bilirubin 0.93, AST 15.8, ALT 15.0, Alkaline Phosphatase 84.2, Total Protein 7.03, Albumin 3.71, Globulin 3.32, Albumin/Globulin Ratio 1.11 08/30/18 06:05: WBC 11.83 H, RBC 4.11 L, Hgb 12.3, Hct 34.2 L D, MCV 83.2, MCH 29.9, MCHC 36.0 H, RDW Coeff of [place] 13.8, Plt Count 205, Immature Gran % (Auto) 0.4, Neut % (Auto) 78.3, Lymph % (Auto) 6.6 L, [place] % (Auto) 14.2 H, Eos % (Auto ) 0.2, Baso % (Auto) 0.3, Immature Gran # (Auto) 0.1, Neut # (Auto) 9.3 H, Lymph # (Auto) 0.8, [place] # (Auto) 1.7, Eos # (Auto) 0.0, Baso # (Auto) 0.0 08/29/18 20:02: Urine Color Yellow, Urine Clarity Turbid, Urine pH 5.5, Ur Specific [place] 1.020, Urine Protein 2+, Urine Glucose (UA) Negative, Urine Ketones 1+, Urine Blood 2+, Urine Nitrite Positive, Urine Bilirubin Negative, Urine Urobilinogen 0.2, Ur Leukocyte Esterase 3+, Urine Microscopic RBC 10-20, Urine Microscopic WBC Tntc, Ur Squamous Epith Cells Not present, Urine Bacteria 4+, Urine Mucus 2+ 08/29/18 09:54: Lactic Acid 1.11 08/29/18 09:54: Procalcitonin 0.33 08/29/18 09:54: Sodium 131.5 L, Potassium 3.27 L, Chloride 99.2, Carbon Dioxide 23.1, Anion Gap 12.47, BUN 15.5, Creatinine 1.03, Estimated GFR (MDRD) 56.00, BUN/Creatinine Ratio 15.04, Glucose 222.1 H, Calcium 9.27, Total Bilirubin 1.27 , AST 13.6 L, ALT 17.1, Alkaline Phosphatase 104.8, Total Protein 7.99, Albumin 4.33, Globulin 3.66, Albumin/Globulin Ratio 1.18, Amylase 40.3, Lipase 62.8 08/29/18 09:54: WBC 15.56 H, RBC 4.87, Hgb 14.5, Hct 40.8, MCV 83.8, MCH 29.8, MCHC 35.5 H, RDW Coeff of [place] 13.7, Plt Count 250, Immature Gran % (Auto) 0.5, Neut % (Auto) 78.5, Lymph % (Auto) 10.3, [place] % (Auto) 10.2 H, Eos % (Auto) 0.1 , Baso % (Auto) 0.4, Immature Gran # (Auto) 0.1, Neut # (Auto) 12.2 H, Lymph # ( Auto) 1.6, [place] # (Auto) 1.6, Eos # (Auto) 0.0, Baso # (Auto) 0.1 08/29/18 09:44: Influ A Molecular Assay Negative by naat, Influ B Molecular Assay Negative by naat ASSESSMENT: 1. Acute right pyelonephritis 2. Hypokalemia 3. Diarrhea, nonspecific 4. Dehydration PLAN: 1. Zofran 4 mg IV q.6 p.r.n. for nausea 2. Continue antibiotics 3. Potassium 20 mEq b.i.d. 4. Continue IV fluids 5. Tylenol 650 tabs q.4 p.r.n. temperature greater than 100.5. Plan and coordination of the patient's care discussed in the presence of Utility Mechanic and nurse. CONDITION: Stable SCRIBED BY: KASH DYSON Enamel Finisher scribed while in presence of service performed by Dr. Gaston/Courtney Cao APRN on 08/30/18 ([id number])
[2018-08-30] MEDS: SYMBICORT 160-4.5 MCG INHALER IH SCH ×2 (09:36→20:51)
[2018-08-30] MEDS: ROCEPHIN 1 GM in SODIUM CHLORIDE 50 ML IV SCH (09:37)
[2018-08-30] MEDS: HYDROCHLOROTHIAZIDE PO SCH (09:38)
[2018-08-30] MEDS: TOPAMAX PO SCH ×2 (09:40→20:53)
[2018-08-30] MEDS: CELEXA PO SCH (09:41)
[2018-08-30] MEDS: LIPITOR PO SCH (09:41)
[2018-08-30] MEDS: NORCO 7.5-325 PO SCH ×3 (09:42→20:55)
[2018-08-30] MEDS: CAPOTEN PO SCH ×2 (09:42→20:52)
[2018-08-30] MEDS: NORVASC PO SCH (09:43)
[2018-08-30] MEDS: K-DUR PO SCH ×2 (09:58→16:45)
[2018-08-30] MEDS: MICRO-K CAP PO SCH (10:12)
[2018-08-30] MEDS: NEURONTIN PO SCH (20:54)
[2018-08-31] MEDS: AZACTAM 1 GM in SODIUM CHLORIDE 50 ML IV SCH ×3 (06:23→20:47)
[2018-08-31] MEDS: ZANTAC PO SCH ×2 (06:23→16:41)
[2018-08-31] MEDS: LASIX TAB PO SCH ×2 (06:23→16:41)
[2018-08-31] MEDS: SYNTHROID PO SCH (06:24)
[2018-08-31] MEDS: HUMULIN R SUBCUT PRN ×4 (06:24→20:51)
[2018-08-31] MEDS: TORADOL IVP SCH ×3 (06:24→22:48)
[2018-08-31] MEDS: ROCEPHIN 1 GM in SODIUM CHLORIDE 50 ML IV SCH (09:24)
[2018-08-31] MEDS: CAPOTEN PO SCH ×2 (09:24→20:48)
[2018-08-31] MEDS: SYMBICORT 160-4.5 MCG INHALER IH SCH ×2 (09:24→20:49)
[2018-08-31] MEDS: NORCO 7.5-325 PO SCH ×3 (09:25→21:56)
[2018-08-31] MEDS: TOPAMAX PO SCH ×2 (09:25→20:47)
[2018-08-31] MEDS: LIPITOR PO SCH (09:26)
[2018-08-31] MEDS: CELEXA PO SCH (09:26)
[2018-08-31] MEDS: HYDROCHLOROTHIAZIDE PO SCH (09:26)
[2018-08-31] MEDS: NORVASC PO SCH (09:26)
[2018-08-31] MEDS: K-DUR PO SCH ×4 (09:26→20:48)
[2018-08-31] MEDS: SODIUM CHLORIDE 1,000 ML IV SCH ×2 (12:31→17:09)
[2018-08-31] MEDS ORDERED: K-DUR PO SCH (17:30)
[2018-08-31] MEDS: DIFLUCAN PO SCH (20:47)
[2018-08-31] MEDS: NEURONTIN PO SCH (20:48)
[2018-09-01] MEDS: SODIUM CHLORIDE 1,000 ML IV SCH ×3 (02:01→22:58)
[2018-09-01] MEDS: AZACTAM 1 GM in SODIUM CHLORIDE 50 ML IV SCH ×3 (04:49→20:31)
[2018-09-01] MEDS: TORADOL IVP SCH ×3 (04:49→20:31)
[2018-09-01] MEDS: ZANTAC PO SCH ×2 (06:09→16:20)
[2018-09-01] MEDS: LASIX TAB PO SCH ×2 (06:09→16:21)
[2018-09-01] MEDS: SYNTHROID PO SCH (06:10)
[2018-09-01] MEDS: HUMULIN R SUBCUT PRN ×4 (06:14→20:31)
[2018-09-01] MEDS: NORCO 7.5-325 PO SCH ×3 (09:35→20:31)
[2018-09-01] MEDS: NORVASC PO SCH (09:35)
[2018-09-01] MEDS: LIPITOR PO SCH (09:35)
[2018-09-01] MEDS: HYDROCHLOROTHIAZIDE PO SCH (09:36)
[2018-09-01] MEDS: K-DUR PO SCH ×4 (09:36→20:31)
[2018-09-01] MEDS: CELEXA PO SCH (09:36)
[2018-09-01] MEDS: TOPAMAX PO SCH ×2 (09:37→20:30)
[2018-09-01] MEDS: ROCEPHIN 1 GM in SODIUM CHLORIDE 50 ML IV SCH (09:37)
[2018-09-01] MEDS: SYMBICORT 160-4.5 MCG INHALER IH SCH ×2 (09:37→21:15)
[2018-09-01] MEDS: CAPOTEN PO SCH ×2 (09:41→20:31)
[2018-09-01] MEDS: DIFLUCAN PO SCH (20:30)
[2018-09-01] MEDS: NEURONTIN PO SCH (20:30)
[2018-09-02] MEDS: SODIUM CHLORIDE 1,000 ML IV SCH (00:12)
[2018-09-02 05:38] VITALS: BP 110/72; TEMP 97.8
[2018-09-02] MEDS: AZACTAM 1 GM in SODIUM CHLORIDE 50 ML IV SCH (05:43)
[2018-09-02] MEDS: ZANTAC PO SCH (05:44)
[2018-09-02] MEDS: SYNTHROID PO SCH (05:44)
[2018-09-02] MEDS: TORADOL IVP SCH (05:44)
[2018-09-02] MEDS: LASIX TAB PO SCH (05:44)
[2018-09-02] MEDS: HUMULIN R SUBCUT PRN (06:10)
--- NOTE | 2018-09-02 08:28 | PCM.PROG ---
Attending Provider: ATTENDING PROVIDER: Dr. FAVIAN GASTON This patient is seen with Courtney Cao, Nurse Practitioner. DATE OF SERVICE: 09/02/18 SUBJECTIVE: This 53 year old WHITE/ F was hospitalized 08/29/18. The patient is resting comfortably. She has no fever and is eating well. REVIEW OF SYSTEMS: CONSTITUTIONAL: No night sweats. No fatigue, malaise, lethargy. No fever or chills. HEENT: Eyes: No visual changes. No eye pain. No eye discharge. ENT: No runny nose. No epistaxis. No sinus pain. No odynophagia. No congestion. RESPIRATORY: No cough, no congestion. No hemoptysis. No shortness of breath. CARDIOVASCULAR: No angina symptoms. No CHF symptoms. No atypical chest pain for CAD. No palpitations. No orthopnea.. GASTROINTESTINAL: No abdominal pain. No nausea or vomiting. No diarrhea or constipation. No hematemesis. No hematochezia. GENITOURINARY: No urgency. No frequency. No dysuria. No hematuria. No obstructive symptoms. No discharge. No pain. No significant abnormal bleeding. MUSCULOSKELETAL: No musculoskeletal pain; no joint swelling. NEUROLOGICAL: Awake, alert, oriented to time, place and person. No headache. No neck pain. No syncope. No seizures. No dizziness. PSYCHIATRIC: Not anxious. No depression. No suicidal thoughts. No homicidal thoughts. SKIN: No rash. No lesions. No wounds. ENDOCRINE: No unexplained weight loss. No weight gain. HEMATOLOGIC/LYMPHATIC: No anemia. No purpura. No petechiae. No prolonged or excessive bleeding. No palpable lymph nodes. PHYSICAL EXAMINATION: GENERAL: The patient is awake, alert and oriented, lying in bed in no distress. VITAL SIGNS: Temperature 97.8 F, Pulse 62, Respiratory Rate 20, BP 110/72, Pulse Ox 99% HEENT: Head normocephalic, atraumatic. Eyes: Extraocular muscles are intact. Pupils are equal, round and reactive to light and accommodation. Ears: No lesions. Nose appeared normal. Throat: No exudate or erythema. NECK: Supple. No JVD, no carotid bruit. No lymphadenopathy or thyromegaly. LUNGS: Diminished breath sounds. Clear to auscultation. Percussion note normal. Chest symmetrical. HEART: S1, S2, no S3. No murmurs. No cyanosis or clubbing. No ascites. Pulses: Dorsalis pedis and posterior tibial pulses +1 to +2 both sides. ABDOMEN: Soft. Non-tender. Bowel sounds active. No CVA tenderness. No mass felt. EXTREMITIES: No edema. Full range of motion of all extremities, equal. NEUROLOGIC: No focal deficit. Cranial nerves II through XII are grossly intact. No headache, no double vision or headache. SKIN: Not dry. Intact. Turgor-normal. LYMPHATIC: No palpable lymph nodes/no lymphedema. MUSCULOSKELETAL: Normal joints with no swelling. Muscle tone is normal. LAB REVIEW: 09/02/18 04:55 09/02/18 04:55 09/02/18 04:55: Sodium 135.5, Potassium 4.35, Chloride 108.7 H, Carbon Dioxide 23.2, Anion Gap 7.95, BUN 27.0 H, Creatinine 0.84, Estimated GFR (MDRD) 71.00, BUN/Creatinine Ratio 32.14, Glucose 234.8 H, Calcium 8.76, Total Bilirubin 0.31 , AST 22.6, ALT 24.1, Alkaline Phosphatase 97.8, Total Protein 6.92, Albumin 3.57, Globulin 3.35, Albumin/Globulin Ratio 1.06 09/02/18 04:55: WBC 7.47, RBC 3.60 L, Hgb 10.7 L, Hct 30.9 L, MCV 85.8, MCH 29.7 , MCHC 34.6, RDW Coeff of [place] 14.2, Plt Count 293, Neutrophils % (Manual) 50.0, Lymphocytes % (Manual) 33.0, Monocytes % (Manual) 8.0, Eosinophils % (Manual) 4.0, Basophils % (Manual) 1.0, Reactive Lymphocytes 4.0, Anisocytosis Not present ASSESSMENT: Please see below. 1. Acute right pyelonephritis 2. Hypokalemia 3. Diarrhea, nonspecific 4. Dehydration PLAN: 1. Omnicef 300mg twice a day for 5 days 2. Diflucan 150mg QOD times two doses 3. Discharge home 4. Echo today Plan and coordination of the patient's care discussed in the presence of Rounding And Backing Machine Operator and nurse. SCRIBED BY: Jayden VIDAL scribed while in presence of service performed by Dr. Gaston/Courtney Cao APRN on 09/02/18 ([id number])
[2018-09-02] MEDS: ROCEPHIN 1 GM in SODIUM CHLORIDE 50 ML IV SCH ×2 (08:56→09:02)
[2018-09-02] MEDS: SYMBICORT 160-4.5 MCG INHALER IH SCH (08:56)
[2018-09-02] MEDS: NORCO 7.5-325 PO SCH (08:57)
[2018-09-02] MEDS: NORVASC PO SCH (08:57)
[2018-09-02] MEDS: HYDROCHLOROTHIAZIDE PO SCH (08:57)
[2018-09-02] MEDS: CAPOTEN PO SCH (08:57)
[2018-09-02] MEDS: K-DUR PO SCH (08:58)
[2018-09-02] MEDS: CELEXA PO SCH (08:58)
[2018-09-02] MEDS: LIPITOR PO SCH (08:59)
[2018-09-02] MEDS: TOPAMAX PO SCH (08:59)
--- NOTE | 2018-09-02 09:04 | CM.DICTOOL ---
ADMISSION: 08/29/18 11:45 DISCHARGE: 09/02/18 FINAL DIAGNOSIS PYELONEPHRITIS - ACUTE - RESOLVED COLITIS - RESOLVED ON OWN HISTORY OF: HTN DM TYPE 2 DYSLIPIDEMIA HYPOTHROIDISM GOUT COPD ASTHMA GERD KIDNEY STONES ANXIETY BACK PAIN ARTHRITIS S/P TUBAL LIGATION - DATE UNKNOWN S/P APPENDECTOMY - DATE UNKNOWN S/P CHOLECYSTECTOMY - DATE UNKNOWN S/P LEFT KNEE MENISCUS REPAIR NON-COMPLIANCE OF MEDS, LIFE STYLE AND FOLLOW UPS LAST VITALS Temp Pulse Resp BP Pulse Ox 97.8 F 62 20 110/72 99 09/02/18 05:37 09/02/18 05:37 09/02/18 05:37 09/02/18 05:37 09/02/18 05:37 TAKE THESE MEDICATIONS AT HOME Hydrocodone Bitart/Acetaminophen ([place] 7.5-325) 1 tab PO TID [facility] Last Admin: 09/01/18 20:31 Dose: 1 tab Albuterol Sulfate (Proair Hfa) 2 puff IH Q4H PRN PRN Reason: Bronchospasm Amlodipine Besylate (Norvasc) 5 mg PO DAILY [facility] Last Admin: 09/01/18 09:35 Dose: 5 mg Atorvastatin Calcium (Lipitor) 40 mg PO DAILY [facility] Last Admin: 09/01/18 09:35 Dose: 40 mg Budesonide/Formoterol Fumarate (Symbicort 160-4.5 Mcg Inhaler) 1 puff IH BID [facility] Last Admin: 09/01/18 21:15 Dose: 1 puff Captopril (Capoten) 50 mg PO BID [facility] Last Admin: 09/01/18 20:31 Dose: 50 mg Citalopram Hydrobromide (Celexa) 40 mg PO DAILY [facility] Last Admin: 09/01/18 09:36 Dose: 40 mg Fluconazole (Diflucan) 150 mg PO QOD X 2 DAYS (2 DOSES) Last Admin: 09/01/18 20:30 Dose: 150 mg Furosemide (Lasix Tab) 20 mg PO BIDAC [facility] Last Admin: 09/02/18 05:44 Dose: 20 mg Gabapentin (Neurontin) 600 mg PO BEDTIME [facility] Last Admin: 09/01/18 20:30 Dose: 600 mg Hydrochlorothiazide (Hydrochlorothiazide) 12.5 mg PO DAILY [facility] Last Admin: 09/01/18 09:36 Dose: 12.5 mg Levothyroxine Sodium (Synthroid) 25 mcg PO QDAC [facility] Last Admin: 09/02/18 05:44 Dose: 25 mcg Potassium Chloride (K-Dur) 10 meq PO BID [facility] Last Admin: 09/01/18 20:31 Dose: 20 meq Ranitidine HCl (Zantac) 150 mg PO BIDAC [facility] Last Admin: 09/02/18 05:44 Dose: 150 mg Topiramate (Topamax) 25 mg PO BID [facility] Last Admin: 09/01/18 20:30 Dose: 25 mg ALLERGIES codeine Adverse Reaction (Verified 08/26/17 16:40) sulfamethoxazole [From Bactrim] Adverse Reaction (Verified 08/26/17 16:40) trimethoprim [From Bactrim] Adverse Reaction (Verified 08/26/17 16:40) Discontinued Medications Sodium Chloride (Sodium Chloride) 1,000 mls @ 125 mls/hr IV .Q8H STA Stop: 08/29/18 17:39 Last Admin: 08/29/18 09:50 Dose: 125 mls/hr Promethazine HCl 25 mg/ Sodium (Chloride) 51 mls @ 75 mls/hr IV ONCE STA Stop: 08/29/18 11:50 Last Admin: 08/29/18 11:17 Dose: 75 mls/hr Insulin Human Regular (Humulin R) 0 unit SUBCUT ONCE STA; Protocol Stop: 08/29/18 11:17 Last Admin: 08/29/18 13:18 Dose: Not Given Potassium Chloride (Micro-K Cap) 10 meq PO BIDWM [facility] Last Admin: 08/30/18 10:12 Dose: Not Given Potassium Chloride (K-Dur) 20 meq PO BIDWM [facility] Last Admin: 08/31/18 09:26 Dose: 20 meq NEW PRESCRIPTIONS: NEW MEDICATIONS: 1. OMNICEF 300MG TAKE 1 CAPSULE 2 TIMES A DAY FOR 5 DAYS. TAKE UNTIL ALL GONE. 2. DIFLUCAN 150MG TAKE 1 CAPSULE EVERY OTHER DAY FOR 2 DAYS (TOTAL OF 2 DOSES). SMOKING: SMOKING CESSATION ENCOURAGED DISEASE SPECIFIC EDUCATION: PYELONEPHRITIS MEDICATIONS INCREASE WATER INTAKE DIET SMOKING CESSATION LAB REVIEW: 09/02/18 04:55 09/02/18 04:55 09/02/18 04:55: Sodium 135.5, Potassium 4.35, Chloride 108.7 H, Carbon Dioxide 23.2, Anion Gap 7.95, BUN 27.0 H, Creatinine 0.84, Estimated GFR (MDRD) 71.00, BUN/Creatinine Ratio 32.14, Glucose 234.8 H, Calcium 8.76, Total Bilirubin 0.31 , AST 22.6, ALT 24.1, Alkaline Phosphatase 97.8, Total Protein 6.92, Albumin 3.57, Globulin 3.35, Albumin/Globulin Ratio 1.06 09/02/18 04:55: WBC 7.47, RBC 3.60 L, Hgb 10.7 L, Hct 30.9 L, MCV 85.8, MCH 29.7 , MCHC 34.6, RDW Coeff of [place] 14.2, Plt Count 293, Neutrophils % (Manual) 50.0, Lymphocytes % (Manual) 33.0, Monocytes % (Manual) 8.0, Eosinophils % (Manual) 4.0, Basophils % (Manual) 1.0, Reactive Lymphocytes 4.0, Anisocytosis Not present PLAN: DISCHARGE HOME TODAY. 09/02/18 CONTINUE HOME MEDICATIONS PER NURSING SHEETS. NEW MEDICATIONS: 1. OMNICEF 300MG TAKE 1 CAPSULE 2 TIMES A DAY FOR 5 DAYS. TAKE UNTIL ALL GONE. 2. DIFLUCAN 150MG TAKE 1 CAPSULE EVERY OTHER DAY FOR 2 DAYS (TOTAL OF 2 DOSES). DIET 1800 CALORIE ADA. INCREASE YOUR WATER INTAKE. ACTIVITY: GRADUALLY RESUME ACTIVITY TOLERATED. FOLLOW UP WITH DR. GASTON ON SundayAugust AT 10AM. PATIENT IS A FULL CODE. SITTING UP IN BED. ALERT AND ORIENTED X 4. Kyle. ANGELICA SANTIAGO INTO SEE PATIENT. PATIENT STATES FEELING BETTER AND WANTS TO GO HOME. PLAN OF CARE DISCUSSED PER Mario DOMINGUEZ APRN INCLUDING ECHO, DISCHARGE, DRINK PLENTY OF WATER AND MEDICATIONS. PATIENT VERBALIZES UNDERSTANDING AND AGREEMENT. VITAL SIGNS ARE STABLE. HAS BEEN AFEBRILE. POX 99% ON ROOM AIR. HEART TONES ARE REGULAR. NO C/O PAIN OR DISCOMFORT. LUNGS ARE CLEAR WITH DIMINISHED BREATH SOUNDS. . NO COUGH OR DYSPNEA NOTED. ABDOMEN IS SOFT, NON-TENDER WITH BOWEL SOUNDS POSITIVE IN ALL 4 QUADS. DENIES TENDERNESS. URINE IS CLOUDY WITH MUCOUS THREADS AND STRONG ODOR. PEDAL PULSES POSITIVE WITHOUT EDEMA. HAS IV OF NORMAL SALINE AT 75ML/HR IN RIGHT FOREARM SITE IS CLEAR. INDEPENDENT WITH ACTIVITIES OF DAILY LIVING. SKIN WARM, DRY AND INTACT. DR. FAVIAN GASTON MD Mario DOMINGUEZ APRN
--- NOTE | 2018-09-03 11:50 | DS ---
DATE OF SERVICE: 09/02/18 FINAL DIAGNOSIS: 1. [id number] 2. Colitis-resolved on own 3. History of hypertension 4. Dyslipidemia 5. Hypothyroidism 6. GOUT 7. COPD 8. Asthma 9. GERD 10.Kidney stones 11.Anxiety 12.Back pain 13.Arthritis 14.Status post tubal ligation- date unknown 15.Statu post appendectomy- date unknown 16.Status post Cholecystectomy-date unknown 17.Status post left knee meniscus repair 18.Non-compliance of medications, life style and followups. LAST VITALS: Temperature 97.8, pulse 62, respiratory rate 20, blood pressure 110/72 and pulse ox 99%. DISCHARGE INSTRUCTIONS: Discharge home today, 09/02/18. Continue home medications per nursing sheet. Followup with Dr. Montejo on SundaySeptember 09 at 10am. CODE STATUS: Full Code. MEDICATIONS AT DISCHARGE: [place] 7.5-325mg one tablet PO three times a day ProAir two puff IG Q 4 hours PRN Norvasc 5mg Po daily Lipitor 40mg PO daily Symbicort 160-4.5mcg one puff IH twice a day Capoten 50mg PO twice a day Celexa 40mg Po daily Diflucan 150mg PO QOD times 2 days Lasix 20mg PO twice a day Neurontin 600mg PO bedtime Hydrochlorothiazide 12.5mg PO daily Synthroid 25mcg PO QDAC K-Dur 10meq PO twice a day Zantac 150mg PO twice a day Topamax 25mg PO twice a day ALLERGIES: Codeine Sulfamethoxazole Trimethoprim DISCONTINUED MEDICATIONS: Sodium chloride 1,000mls at 125mls/hr IV Q 8 hours Chloride 51mls At 75mls/hr once stat Humulin R [address] Micro-K capsule 10meq PO twice a day K-Dur 20meq Po twice a day NEW PRESCRIPTIONS: Omnicef 300mg take one capsule two times a day for 5 days. Take until all gone. Diflucan 150mg take one capsule every other day for 2 days. (total of 2 doses) DIET INSTRUCTIONS: 1800 calories ADA. Increase water intake ACTIVITY: Gradually resume activity as tolerated. SMOKING: Smoking cessation encouraged DISEASE SPECIFIC EDUCATION: Pyelonephritis Medications Increase water intake Diet Smoking cessation HOSPITAL COURSE: 53 year old white female who was admitted from the emergency room after presenting with fever and right flank pain. CT of the abdomen showed acute right pyelonephritis. She was admitted and placed on Rocephin 1 gram IV daily along with Azactam. She was started on IV fluids normal saline at 75cc an hour. Kidney function was slightly elevated on admission. This quickly resolved with IV fluids. She does have a history of uncontrolled Diabetes mellitus type 2 and was placed on sliding scale insulin which was controlled during her hospital stay. She ran fever for the first 48 hours up to 102 after 72 hours she was fever free. All of her home medications were continued. She was receiving Toradol 30mg IV Q 8 hours for the right flank pain. After the fever resolved her abdominal and flank pain seemed to resolve as well. Today on day of discharge her fluids have been discontinued. BUN 27 and creatinine 0.84, sodium 135, potassium 4.35 and WBC 7.4, hgb 10.7, hct 30.9. WBC was elevated on admission and has improved now. She did report that she was feeling some thrush type symptoms and some vaginal itching so she was started on Diflucan 150mg PO. We will send her home with Diflucan 150mg PO QOD times two pills. She will also go home on Omnicef 300mg PO twice a day for the next 5 days as she has already had four days of Rocephin and Azactam. U/A was significantly abnormal with 4+ bacteria however urine culture showed zero growth which I do believe is an error. Again she has dramatically improved with IV antibiotic. Flank pain has resolved as well as abdominal pain. We will discharge her today in stable condition. She does have a long history of smoker, uncontrolled diabetes mellitus type. She is obese. We did do an echo today and Dr. Montejo did do the cardiac risk factors. You can see his report. She will be discharged in stable condition today and we will followup with her in the office next week. TIME SPENT: More than 60 minutes. RAMO
--- NOTE | 2018-09-03 13:36 | PN ---
DATE OF SERVICE: 08/29/18 SUBJECTIVE: The patient was seen and examined in Room 118. The patient is hospitalized through the emergency room by Dr. Gibson with acute pyelonephritis and also chronic diarrhea for four weeks. The patient is on Rocephin, Azactam and IV fluids. The patient is noncompliant about her diet, activity and lifestyle. The patient is going to be on sliding scale for diabetes. The patient was seen and examined with the nurse practitioner. TIME SPENT: More than 30 minutes. Plan and coordination of the patient's care discussed in the presence of nurse. RAMO
--- NOTE | 2018-09-03 13:38 | PN ---
DATE OF SERVICE: 08/30/18 SUBJECTIVE: The patient was seen and examined with the nurse practitioner. Condition is improving. Infection, pyelonephritis and diarrhea seem to be under control. The patient is noncompliant, educated about diabetes with its complications. Prognosis si poor. 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 TIME SPENT: More than 30 minutes. Plan and coordination of the patient's care discussed in the presence of nurse. RAMO
--- NOTE | 2018-09-04 08:37 | ECHO2D ---
Date of Exam: 09/02/18 Ordering Physician: DR. FAVIAN GASTON Room #: 118 Reason for Echo: CARDIOMEGALY, DM, OBESITY, SOB M-Mode Normal Adult Results LV Dimensions Normal Adult Results AoV Opening excursions >1.6 >1.6 LVEDD-base- 3.5-5.8 4.2 Ao root dimensions 2.0-3.7 3.1 LVESD-base- 3.1-4.6 L. Atrium dimensions 1.9-3.8 3.9 Post. Wall thickness 0.8-1.1 1.2 IV septum (thickness) 0.7-1.2 1.2 Post. Wall excursion 0.72-1.3 NORMAL Septal motion NORMAL Systolic motion R. Ventricular cavity 1.5-2.0 3.0 LVEF 60% 56% Paradoxical septal wall motion NORMAL 2-D : 2-D M Mode Echocardiogram was performed using apical four chamber and left parasternal long and short axis views. Mitral, tricuspid and aortic valves appear to be normal. Contractility of the left ventricle seems to be normal, so is the cavity size. Left atrial cavity size and aortic root appear to be normal. There is no pericardial effusion. There is no thrombus noted in the left ventricular or left aortic cavity. No mitral valve prolapse noted. RIGHT VENTRICLE CAVITY ENLARGEMENT M-MODE: MV: NORMAL AV: NORMAL TV: NORMAL PV: CHAMBER SIZE: ENLARGED RIGHT VENTRICLE CAVITY WALL MOTION: NORMAL PERICARDIUM: NORMAL INTERPRETATION: 1. BORDERLINE LEFT VENTRICULAR HYPERTROPHY 2. NORMAL VALVES 3. NORMAL LEFT VENTRICULAR HYPERTROPHY 4. ENLARGED RIGHT VENTRICLE CAVITY MTDD
--- NOTE | 2018-09-04 08:56 | PN ---
DATE OF SERVICE: 08/31/18 SUBJECTIVE: 53-year-old white female hospitalized two days ago with evidence of acute pyelonephritis involving right kidney and also had colitis. The patient still running low grade fever but she doesn't have any chills. She had it for four weeks and has subsided. The patient is being treated with Rocephin, Azactam. REVIEW OF SYSTEMS: CONSTITUTIONAL: No night sweats. No fatigue, malaise, lethargy. No fever or chills. HEENT: Eyes: No visual changes. No eye pain. No eye discharge. ENT: No runny nose. No epistaxis. No sinus pain. No sore throat. No odynophagia. No congestion. RESPIRATORY: No cough, no congestion. No hemoptysis. No shortness of breath. CARDIOVASCULAR: No angina symptoms. No CHF symptoms. No atypical chest pain for CAD. No palpitations. No orthopnea. GASTROINTESTINAL: No abdominal pain. No nausea or vomiting. No diarrhea or constipation. No hematemesis. No hematochezia. GENITOURINARY: No urgency. No frequency. No dysuria. No hematuria. No obstructive symptoms. No discharge. No pain. No significant abnormal bleeding. MUSCULOSKELETAL: No musculoskeletal pain; no joint swelling. NEUROLOGICAL: No headache. No neck pain. No syncope. No seizures. No dizziness. PSYCHIATRIC: Not anxious. No depression. No suicidal thoughts. No homicidal thoughts. SKIN: No rash. No lesions. No wounds. ENDOCRINE: No unexplained weight loss. No weight gain. HEMATOLOGIC/LYMPHATIC: No anemia. No purpura. No petechiae. No prolonged or excessive bleeding. No palpable lymph nodes. PHYSICAL EXAMINATION: VITAL SIGNS: Temperature 99.5, pulse 76, respiratory rate 20, BP 98/63, pulse ox 95%. HEENT: Head normocephalic, atraumatic. Eyes: Extraocular muscles are intact. Pupils are equal, round and reactive to light and accommodation. Ears: No lesions. Nose appeared normal. Throat: No exudate or erythema. NECK: Supple. No JVD, no carotid bruit. No lymphadenopathy or thyromegaly. LUNGS: Decreased breath sounds but clear to auscultation. Percussion note normal. Chest symmetrical. HEART: S1, S2, no S3. No murmurs. No cyanosis or clubbing. No ascites. Pulses: Dorsalis pedis and posterior tibial pulses +1 to +2 bilaterally. ABDOMEN: Soft. Nontender. Bowel sounds active. No CVA tenderness. No mass felt. EXTREMITIES: No edema. Full range of motion of all extremities, equal. NEUROLOGIC: No focal deficit. Cranial nerves II through XII are grossly intact. No headache, no double vision or headache. SKIN: Not dry. Intact. Turgor - normal. LYMPHATIC: No palpable lymph nodes/no lymphedema. MUSCULOSKELETAL: Normal joints with no swelling. Muscle tone is normal. LABS: Hemoglobin 11.1, hematocrit 31, WBC 9,300, normal differential. Creatinine 1.3, BUN 28, potassium 3.2. ASSESSMENT: 1. PYELONEPHRITIS SEEMS TO BE RESOLVING. 2. COLITIS SEEMS TO HAVE RESOLVED. 3. HYPOKALEMIA - WILL GIVE K-DUR 20 MEQ FOUR TIMES A DAY, MONITOR POTASSIUM. 4. HYPERTENSION UNDER CONTROL. 5. DYSLIPIDEMIA. 6. OBESITY, MORBID. PLAN: 1. Advised to lose weight. 2. Advised to exercise. 3. Will also do echocardiogram before discharge to evaluate her LV function and cause for her shortness of breath. The cause of shortness of breath is sedentary lifestyle and morbid obesity. CONDITION: Stable. TIME SPENT: More than 30 minutes. Plan and coordination of the patient's care discussed in the presence of nurse. RAMO
--- NOTE | 2018-09-04 09:06 | PN ---
DATE OF SERVICE: 09/01/18 SUBJECTIVE: 53-year-old white female hospitalized with acute pyelonephritis, colitis. The patient's condition is improved. Today she is afebrile. REVIEW OF SYSTEMS: CONSTITUTIONAL: No night sweats. No fatigue, malaise, lethargy. No fever or chills. HEENT: Eyes: No visual changes. No eye pain. No eye discharge. ENT: No runny nose. No epistaxis. No sinus pain. No sore throat. No odynophagia. No congestion. RESPIRATORY: No cough, no congestion. No hemoptysis. No shortness of breath. CARDIOVASCULAR: No angina symptoms. No CHF symptoms. No atypical chest pain for CAD. No palpitations. No orthopnea. GASTROINTESTINAL: No abdominal pain. No nausea or vomiting. No diarrhea or constipation. No hematemesis. No hematochezia. GENITOURINARY: No urgency. No frequency. No dysuria. No hematuria. No obstructive symptoms. No discharge. No pain. No significant abnormal bleeding. MUSCULOSKELETAL: No musculoskeletal pain; no joint swelling. NEUROLOGICAL: No headache. No neck pain. No syncope. No seizures. No dizziness. PSYCHIATRIC: Not anxious. No depression. No suicidal thoughts. No homicidal thoughts. SKIN: No rash. No lesions. No wounds. ENDOCRINE: No unexplained weight loss. No weight gain. HEMATOLOGIC/LYMPHATIC: No anemia. No purpura. No petechiae. No prolonged or excessive bleeding. No palpable lymph nodes. PHYSICAL EXAMINATION: VITAL SIGNS: Temperature 97.5, pulse 62, respiratory rate 18, BP 103/70, pulse ox 98%. HEENT: Head normocephalic, atraumatic. Eyes: Extraocular muscles are intact. Pupils are equal, round and reactive to light and accommodation. Ears: No lesions. Nose appeared normal. Throat: No exudate or erythema. NECK: Supple. No JVD, no carotid bruit. No lymphadenopathy or thyromegaly. LUNGS: Decreased breath sounds, clear to auscultation. Percussion note normal. Chest symmetrical. HEART: S1, S2, no S3. No murmurs. No cyanosis or clubbing. No ascites. Pulses: Dorsalis pedis and posterior tibial pulses +1 to +2 bilaterally. ABDOMEN: Soft. Nontender. Bowel sounds active. No CVA tenderness. No mass felt. EXTREMITIES: No edema. Full range of motion of all extremities, equal. NEUROLOGIC: No focal deficit. Cranial nerves II through XII are grossly intact. No headache, no double vision or headache. SKIN: Not dry. Intact. Turgor - normal. LYMPHATIC: No palpable lymph nodes/no lymphedema. MUSCULOSKELETAL: Normal joints with no swelling. Muscle tone is normal. LABS: Hemoglobin 10.5, hematocrit 30, WBC 7,300, normal differential. Creatinine 0.8, BUN 27, potassium 3.7, glucose 296. ASSESSMENT: 1. ACUTE PYELONEPHRITIS SEEMS TO BE GETTING UNDER CONTROL NOW. 2. COLITIS SEEMS TO HAVE RESOLVED. NO DIARRHEA. THE PATIENT SAYS SHE IS FEELING A LOT BETTER, DOES NOT HAVE ANY PAIN IN THE RIGHT FLANK AREA OR DIARRHEA ANYMORE. APPETITE HAS IMPROVED. THE ONLY PROBLEM IS THAT SHE IS USUALLY SHORT OF BREATH ON MINIMAL EXERTION USUAL. CAUSE IS SEDENTARY LIFESTYLE AND MORBID OBESITY. PLAN: 1. Will do echocardiogram before discharge. 2. The patient has multiple risk factors for coronary artery disease and she is high risk for acute myocardial event. She was explained about. CONDITION: Stable TIME SPENT: More than 30 minutes. Plan and coordination of the patient's care discussed in the presence of nurse. RAMO
== END 2018-09-02 09:56 | disposition home or self-care (01) ==
LOC: ED 09:00 → MEDSURG B 11:45 → INTOOBSV 11:45
PROVIDERS: ADMIT Internal Medicine; ATTEND Internal Medicine
DX: N10 Acute pyelonephritis (principal); I10 Essential (primary) hypertension; E78.5 Hyperlipidemia, unspecified; E03.9 Hypothyroidism, unspecified; E11.9 Type 2 diabetes mellitus without complications; E87.6 Hypokalemia; E66.01 Morbid (severe) obesity due to excess calories; E86.0 Dehydration; M10.9 Gout, unspecified; M54.9 Dorsalgia, unspecified; M19.90 Unspecified osteoarthritis, unspecified site; J44.9 Chronic obstructive pulmonary disease, unspecified; J45.909 Unspecified asthma, uncomplicated; K52.9 Noninfective gastroenteritis and colitis, unspecified; K21.9 Gastro-esophageal reflux disease without esophagitis; F41.9 Anxiety disorder, unspecified; N20.0 Calculus of kidney; N39.0 Urinary tract infection, site not specified; R19.7 Diarrhea, unspecified; R10.30 Lower abdominal pain, unspecified; R25.2 Cramp and spasm; R53.81 Other malaise
CPT/HCPCS: 36415; 80053; 81001; 82150; 82962; 83605; 83690; 84145; 85007; 85025; 87040; 87086; 87502; 87651; 93005; 93010; 96360; 96361; 96365; 96366; 96367; 96375; 96376; 97802; 99217; 99220; 99224; 99284

== ENCOUNTER 2018-10-01 13:06 | Outpatient (CLI) ==
--- NOTE | 2018-10-01 13:52 | US ---
EXAM: Bilateral carotid artery Doppler History: Dizziness. Technique: Multiple sonographic images through the bilateral internal carotid arteries were obtained . Color duplex Doppler was used to interrogate vascular flow. Findings: The right ICA peak systolic velocity is within normal limits measuring 53 cm/sec. The right ICA/cca PSV ratio is normal at 0.79. The right vertebral artery is patent and demonstrates antegrade flow. Humphries scale images demonstrate no significant plaque buildup within the right internal carotid artery. The left ICA peak systolic velocity is within normal limits measuring 53 cm/sec. The left ICA/cca PS V ratio is normal at 0.80. The left vertebral artery is patent and demonstrates antegrade flow. Gra y scale images demonstrate no significant plaque buildup within the left internal carotid artery. Impression: No significant hemodynamic stenosis of the bilateral internal carotid arteries
== END 2018-10-01 13:07 | disposition home or self-care (01) ==
LOC: RAD 13:06
PROVIDERS: ATTEND Internal Medicine
DX: R42 Dizziness and giddiness (principal); I10 Essential (primary) hypertension; E11.9 Type 2 diabetes mellitus without complications; E03.9 Hypothyroidism, unspecified; E66.9 Obesity, unspecified
CPT/HCPCS: 36415; 80053; 80061; 83036; 84443; 85025

== ENCOUNTER 2018-10-03 12:36 | Emergency (ER) ==
[2018-10-03 12:49] VITALS: BP 119/83; TEMP 99.1; BMI 38.2
--- NOTE | 2018-10-03 12:50 | ED.PDOC ---
General ED Provider: Dr. BAY TRAN Chief Complaint: Urinary Problem Stated Complaint: Urinary tract problems. Associated Diarrhea for a month. Has a Hx kidney stone. In August 2018 patient was hospitlized for 4 days with kidney stone and UTI and after discharge on the , does not fee much improvement. Diarrhea described as loose stool. None today. Has lost 22 pounds in past month. Was at Dr Gaston's office today. Was instructed to come to ER for eval. Patient has lab work completed on 10/01/2018 which revealed no acute problems. States no change in her status since Sunday10/01/18 Time Seen by Physician: 13:40 Mode of Arrival: Walk-In Information Source: Patient Exam Limitations: No limitations Primary Care Provider: FAVIAN GASTON Referred to ED by: PCP, Clinic Seen Within Last 72 Hours for Same Complaint By: PCP Nursing and Triage Documentation Reviewed and Agree: Yes Does patient meet sepsis criteria?: No System Inflammatory Response Syndrome: Not Applicable Sepsis Protocol: For patient's 13 years and over: Temp is 96.8 and below OR 101 and greater Pulse >90 BPM Resp >20/minute Acutely Altered Mental Status Are patient's symptoms suggestive of a new infection, such as: -Pneumonia -Skin, Soft Tissue -Endocarditis -UTI -Bone, Joint Infection -Implantable Device -Acute Abdominal Infection -Wound Infection -Meningitis -Blood Stream Catheter Infection -Unknown Complaint Exam - UTI Female Complaint/Exam Symptoms Are: Still present Timing: Intermittent Initial Severity: Severe Current Severity: Mild Location of Pain: Reports: Right, Left Associated Signs and Symptoms: Reports: Flank pain Related Surgical History: Reports: None CVA Tenderness: No Suprapubic Tenderness: Yes Differential Diagnoses: Cystitis, Pyelonephritis, Ureteral Calculus Review of Systems - Review Of Systems Constitutional: Reports: No symptoms Eyes: Reports: No symptoms Ears, Nose, Mouth, Throat: Reports: No symptoms Respiratory: Reports: No symptoms Cardiac: Reports: No symptoms GI: Reports: No symptoms : Reports: Dysuria Musculoskeletal: Reports: No symptoms Skin: Reports: No symptoms Neurological: Reports: No symptoms Endocrine: Reports: No symptoms Hematologic/Lymphatic: Reports: No symptoms All Other Systems: Reviewed and Negative Past Medical History - Past Medical History Previously Healthy: No Endocrine: Reports: DM 2, Hypothyroid, Dyslipidemia, Other (gout) Cardiovascular: Reports: Hypertension Respiratory: Reports: COPD, Asthma Hematological: Reports: Unknown Gastrointestinal: Reports: GERD Genitourinary: Reports: Kidney stones Neuro/Psych: Reports: Anxiety Musculoskeletal: Reports: Arthritis, Back Pain Cancer: Reports: Unknown - Surgical History General Surgical History: Reports: Tubal ligation, Appendectomy, Cholecystectomy , Orthopedic (lrft knee meniscus repair ) - Family History Family History: Reports: Unknown - Social History Smoking Status: Current every day smoker Hx Substance Use: No Alcohol Screening: None Physical Exam - Physical Exam Appearance: Well-appearing, No pain distress, Well-nourished, Obese Ill-appearing: None Pain Distress: None Eyes: KELLY, EOMI, Conjunctiva clear ENT: Ears normal Neck: Supple Respiratory: Airway patent, Breath sounds clear, Breath sounds equal, Respirations nonlabored Cardiovascular: RRR, Pulses normal, No rub, No murmur GI/: Soft, Nontender, Bowel sounds normal, No Organomegaly Musculoskeletal: Normal strength, ROM intact, No edema, No calf tenderness Skin: Warm, Dry, Normal color Neurological: Sensation intact, Motor intact, Reflexes intact, Cranial nerves intact, Alert, Oriented Psychiatric: Affect appropriate, Mood appropriate Critical Care Note - Critical Care Note Total Time (mins): 0 Course - Course Orders, Labs, Meds: Lab Review 10/03/18 13:00 Urine Color Yellow Urine Clarity Clear Urine pH 6.0 Ur Specific Vista 1.015 Urine Protein Negative Urine Glucose (UA) Negative Urine Ketones Trace Urine Blood Trace-lysed Urine Nitrite Negative Urine Bilirubin Negative Urine Urobilinogen 0.2 Ur Leukocyte Esterase Trace Urine Microscopic RBC 0-2 Urine Microscopic WBC 10-20 Ur Squamous Epith Cells 5-10 Orders Category Date Time Status UA [URINALYSIS C & S IF INDICATED] Stat LAB 10/03/18 13:00 Completed URINE CULTURE Stat LAB 10/03/18 13:00 Received Promethazine HCl [Phenergan 25 mg/ml Vial] MEDS 10/03/18 13:45 Discontinued 25 mg .ROUTE .STK-MED ONE Promethazine HCl [Phenergan 25 mg/ml Vial] 25 mg MEDS 10/03/18 13:23 Discontinued 0.9 % Sodium Chloride [Sodium Chloride] 50 ml IV ONCE Sodium Chloride 0.9% [Sodium Chloride] 500 ml MEDS 10/03/18 13:25 Discontinued IV BOLUS CHEST, 1V AP ONLY Stat RADS 10/03/18 13:[address] ABDOMEN/PELVIS WO CONTRAST Stat RADS 10/03/18 13:27 Completed Medications Discontinued Medications Generic Name Dose Route Start Last Admin Trade Name Anamika PRN Reason Stop Dose Admin Promethazine HCl 25 mg/ Sodium 51 mls @ 75 mls/hr 10/03/18 13:23 10/03/18 14: 11 Chloride IV 10/03/18 14:03 75 mls/hr ONCE STA Administration Sodium Chloride 500 mls @ 500 mls/hr 10/03/18 13:25 10/03/18 14:11 Sodium Chloride IV 10/03/18 14:24 500 mls/hr BOLUS STA Administration Vital Signs: Temp Pulse Resp BP Pulse Ox 10/03/18 12:37 99.1 F 96 H 2 L 119/83 96 Departure - Departure Time of Disposition: 16:30 Disposition: HOME SELF-CARE Discharge Problem: Chronic diarrhea, Diverticulosis, Hx: UTI (urinary tract infection) Instructions: Loperamide (By mouth), Irritable Bowel Syndrome (ED), Chronic Diarrhea (ED) Condition: Good Pt referred to PMD for follow-up: Yes IPMP verified?: No Prescriptions: Loperamide HCl [Imodium A-D] 2 mg PO TID #15 capsule Allergies/Adverse Reactions: Allergies codeine Adverse Reaction (Verified 10/03/18 12:50) sulfamethoxazole [From Bactrim] Adverse Reaction (Verified 10/03/18 12:50) trimethoprim [From Bactrim] Adverse Reaction (Verified 10/03/18 12:50) Home Medications: Ambulatory Orders Albuterol Sulfate [Proair Hfa] 2 puff IH Q4H PRN 05/21/16 Amlodipine Besylate [Norvasc] 5 mg PO DAILY 05/21/16 Atorvastatin Calcium [Lipitor] 40 mg PO DAILY 05/21/16 Budesonide/Formoterol Fumarate [Symbicort 160-4.5 Mcg Inhaler] 1 puff IH BID 10/05 Captopril 50 mg PO BID 05/21/16 Citalopram Hydrobromide [Citalopram HBr] 40 mg PO DAILY 05/21/16 Furosemide [Lasix] 20 mg PO BID 05/21/16 Hydrochlorothiazide 12.5 mg PO DAILY 05/21/16 Levothyroxine Sodium [Synthroid] 25 mcg PO QDAC 05/21/16 Metformin HCl [Glucophage] 1,000 mg PO BID 05/21/16 Potassium Chloride [Micro-K Cap] 10 meq PO BID 05/21/16 Ranitidine HCl 150 mg PO BID 05/21/16 Topiramate [Topamax] 25 mg PO BID 05/21/16 Gabapentin 900 mg PO BEDTIME 06/13/17 Hydrocodone/Acetaminophen [Hydrocodone-Acetamin 10-300 mg] 1 tab PO TID PRN Loperamide HCl [Imodium A-D] 2 mg PO TID #15 capsule 10/03/18 Meloxicam [Mobic] 7.5 mg PO DAILY 10/03/18 Disposition Discussed With: Patient, Family
[2018-10-03] MEDS ORDERED: PHENERGAN 25 MG/ML VIAL 25 MG in SODIUM CHLORIDE 50 ML IV STA (13:23)
[2018-10-03] MEDS ORDERED: SODIUM CHLORIDE 500 ML IV STA (13:25)
[2018-10-03] MEDS ORDERED: PHENERGAN 25 MG/ML VIAL ONE (13:45)
--- NOTE | 2018-10-03 14:08 | DI ---
EXAM: CHEST FRONTAL VIEW HISTORY: Abdominal pain. COMPARISON: 08/24/2015 FINDINGS: Heart size and mediastinum within normal limits. Lungs are free of infiltrate. No c onsolidation or pleural fluid. There is no pneumothorax or acute bony finding. IMPRESSION: Findings within normal limits.
--- NOTE | 2018-10-03 14:20 | CT ---
EXAM: CT ABDOMEN AND PELVIS HISTORY: Diarrhea, abdominal pain, recent kidney stone TECHNIQUE: CT abdomen and pelvis without intravenous contrast. Images were reconstructed using 3 mm section thickness. Reformations were prepared. COMPARISON: 08/29/2018 FINDINGS: Diagnostic limitations may exist without including contrast enhanced images. A few punctate calcific ations are suggested within the kidneys which could be related to nephrolithiasis. These are 2 mm or less in size and more noticeable on the left. There is no hydronephrosis or significant perinephric fat stranding. Ureters are clear. Redemonstration of slightly irregular urinary bladder wall thick ening. No focal hepatic or splenic lesions identified. Elongated right hepatic lobe. Gallbladder is absent . Pancreas is within normal limits. Normal adrenal glands. Mild atherosclerotic disease. Stomach appears normal. An appendix, if present is not seen. Probable fold thickening of the proximal small bowel. Nonobstructive bowel gas pattern. Mild distal colon diverticulosis. The uterus appears nor mal. There is no ascites. Ventral abdominal wall is intact. The bones are within normal limits. L yvonne bases are free of acute infiltrate.. There is a tiny 5 mm nodule on the diaphragmatic pleura, ri ght lung which is not noticeably changed since 05/21/2016. No pneumoperitoneum. IMPRESSION: 1. Probable fold thickening of the proximal small bowel which can be consistent with duodenitis. No nobstructive bowel gas pattern. Distal colon diverticulosis without diverticulitis. No ascites or f ree air. 2. Probable punctate renal calculi. No hydronephrosis or ureteral obstruction. 3. Redemonstration of slightly irregular urinary bladder wall thickening which may be related to cys titis. Further workup may be needed to exclude neoplasia if not previously performed. 4. Atherosclerosis.
== END 2018-10-03 16:49 | disposition home or self-care (01) ==
LOC: ED 12:36
DX: R19.7 Diarrhea, unspecified (principal); K57.90 Diverticulosis of intestine, part unspecified, without perforation or abscess without bleeding; R63.4 Abnormal weight loss; E11.9 Type 2 diabetes mellitus without complications; E03.9 Hypothyroidism, unspecified; E78.5 Hyperlipidemia, unspecified; I10 Essential (primary) hypertension; Z87.440 Personal history of urinary (tract) infections; Z87.442 Personal history of urinary calculi; F17.210 Nicotine dependence, cigarettes, uncomplicated; Z79.899 Other long term (current) drug therapy
CPT/HCPCS: 81001; 87086; 96361; 96365; 99283

== ENCOUNTER 2018-11-06 12:44 | Outpatient (CLI) ==
--- NOTE | 2018-11-06 13:36 | DI ---
EXAM: Three views of the right ankle. History: Right ankle pain. Findings: No acute fracture or dislocation. Small plantar spur. No radiopaque foreign bodies. Gillian nt spaces are relatively preserved. Subcutaneous edema at the ankle. Impression: 1. No acute osseous abnormality. 2. Small plantar spur. 3. Subcutaneous edema
--- NOTE | 2018-11-06 13:37 | DI ---
EXAM: Two views of the right calcaneus. History: Right heel pain. Findings: No acute fracture or dislocation. No radiopaque foreign bodies. 6 mm plantar spur. Impression: 1. No acute osseous abnormality. 2. Small plantar spur
--- NOTE | 2018-11-06 13:39 | DI ---
EXAM: Three views of the right foot. History: Right foot pain. Findings: No acute fracture or dislocation. Hallux valgus deformity. Mild to moderate narrowing of the first MTP joint with marginal sclerosis and osteophyte formation. Small plantar spur. Impression: 1. No acute osseous abnormality. 2. Hallux valgus deformity. 3. 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 4. Small plantar spur
== END 2018-11-06 12:45 | disposition home or self-care (01) ==
LOC: RAD 12:44
PROVIDERS: ATTEND Internal Medicine
DX: M79.671 Pain in right foot (principal)